=== PATIENT | male | born 1955 | race Caucasian/White ===

== ENCOUNTER 2021-07-04 16:54 | Observation (INO) | payer OTHER ==
[~2021-07-04] VITALS: Ht 180.3 cm; Wt 136.1 kg
[2021-07-04 17:27] LABS: BASOPHILS # (AUTO) 0.1 (0.0-0.1); BASOPHILS % 0.8 % (0.0-1.0); EOSINOPHILS # (AUTO) 0.2 (0.0-0.4); EOSINOPHILS % 1.5 % (0.0-6.0); HEMOGLOBIN 13.3 g/dL (14.0-18.0); LYMPHOCYTES # (AUTO) 1.7 (1.0-3.2); LYMPHOCYTES % 16.4 % (18.0-39.1); MEAN CORPUSCULAR HGB CONC 33.3 g/dL (31-35); MEAN CORPUSCULAR VOLUME 84.2 fL (81-99); MONOCYTES # (AUTO) 1.1 (0.2-0.8); MONOCYTES % 10.1 % (4.4-11.3); NEUTROPHILS # (AUTO) 7.4 (2.1-6.9); NEUTROPHILS % 70.4 % (38.7-80.0); PLATELET COUNT 304 x10e3/uL (140-360); RED BLOOD COUNT 4.75 x10e6/uL (4.3-5.7); RED CELL DISTRIBUTION WIDTH 13.3 % (11.7-14.4)
[2021-07-04 17:40] LABS: ALBUMIN 3.4 g/dL (3.5-5.0); ANION GAP 18.4 mmol/L (8-16); CALCIUM 8.3 mg/dL (8.4-10.2); CREATININE, SERUM 2.18 mg/dL (0.72-1.25); POTASSIUM 4.4 mmol/L (3.5-5.1)
[2021-07-04 17:47] LABS: CREATINE KINASE MB 1.8 ng/mL (0-5.0)
[2021-07-04 19:05] LABS: CLARITY,URINE TURBID (CLEAR); COLOR,URINE YELLOW (YELLOW); KETONES,URINE NEGATIVE (NEGATIVE); LEUKOCYTE ESTERASE ,URINE SMALL (NEGATIVE); NITRITE,URINE NEGATIVE (NEGATIVE); PROTEIN,URINE DIPSTICK 1+ (NEGATIVE); URINE UROBILINOGEN 0.2 mg/dL (0.2 - 1)
[2021-07-04 19:20] LABS: BACTERIA,URINE MANY /HPF; EPITHELIAL CELLS,URINE FEW /LPF; WBC,URINE (MAN) >50 /HPF (0-5)
[2021-07-04] MEDS ORDERED: ONDANSETRON HCL INJ 2MG/ML 2ML 2 MG/ML VIAL IV PRN (19:30)
[2021-07-04] MEDS ORDERED: DEXTROSE 50% SYRINGE 50 ML IV PRN (19:30)
[2021-07-04] MEDS ORDERED: SODIUM CHLORIDE FLUSH 10 ML SYR INJ PRN (19:30)
[2021-07-04] MEDS: CEFTRIAXONE 1 GM in SODIUM CHLORIDE 0.9% 50ML 50 ML IV SCH (19:58)
[2021-07-04] MEDS: SODIUM CHLORIDE 0.9% 1000ML 1,000 ML IV SCH (19:58)
[2021-07-04 20:40] VITALS: BP 138/70
[2021-07-04 20:54] VITALS: BP 138/70
[2021-07-04] MEDS: INSULIN REGULAR, HUMAN 100 UNIT/1 ML SQ SCH (22:11)
[2021-07-04] MEDS: ACETAMINOPHEN 325 MG TAB PO PRN (22:17)
[2021-07-04] MEDS ORDERED: ASPIRIN81 MG PO (23:01)
[2021-07-04] MEDS ORDERED: ATORVASTATIN CA80 MG (23:01)
[2021-07-04] MEDS ORDERED: METFORMIN HCL500 M1 (23:01)
[2021-07-04] MEDS ORDERED: ERYTHROMYCIN 2%30 GM (23:01)
[2021-07-04] MEDS ORDERED: JARDIANCE25 MG (23:01)
[2021-07-04] MEDS ORDERED: AMLODIPINE BESYL5 MG (23:01)
[2021-07-04] MEDS ORDERED: DIFLUPREDNATE5 ML (23:01)
[2021-07-04] MEDS ORDERED: HYDROCHLOROTH12.5 MG (23:01)
[2021-07-04] MEDS ORDERED: BRILINTA90 MG (23:01)
[2021-07-04] MEDS ORDERED: ATROPINE SULFATE2 ML (23:01)
[2021-07-04] MEDS ORDERED: LOSARTAN POTAS100 MG (23:01)
[2021-07-04] MEDS ORDERED: OFLOXACIN5 M1 (23:01)
[2021-07-05] VITALS (7 sets, daily range): BP systolic 115–167; BP diastolic 56–85
[2021-07-05] MEDS: SODIUM CHLORIDE 0.9% 1000ML 1,000 ML IV SCH ×2 (05:20→16:05)
[2021-07-05 07:21] LABS: CREATINE KINASE MB 1.8 ng/mL (0-5.0)
[2021-07-05] MEDS: INSULIN REGULAR, HUMAN 100 UNIT/1 ML SQ SCH ×4 (07:30→20:56)
[2021-07-05 07:41] LABS: CHOL/HDL RATIO 3.6 (3.9-4.7)
[2021-07-05] MEDS: CEFTRIAXONE 1 GM in SODIUM CHLORIDE 0.9% 50ML 50 ML IV SCH (08:33)
[2021-07-05] MEDS: Morphine 2mg Syringe 2 MG/ML SYR IV PRN ×2 (08:33→16:06)
[2021-07-05] MEDS ORDERED: KETOROLAC TROMETHAMINE 30 MG/ML VIAL IV PRN (10:30)
[2021-07-05] MEDS: ACETAMINOPHEN 325 MG TAB PO PRN (11:20)
[2021-07-05] MEDS: AMLODIPINE BESYLATE 5 MG TAB PO SCH (11:21)
[2021-07-05] MEDS: JARDIANCE 10 MG PO SCH (11:24)
[2021-07-05 14:01] LABS: CHOL/HDL RATIO 3.9 (3.9-4.7)
[2021-07-05 14:09] LABS: CREATINE KINASE MB 1.9 ng/mL (0-5.0)
[2021-07-05] MEDS ORDERED: ATORVASTATIN 20 MG TAB PO SCH (21:00)
[2021-07-06] VITALS: BP 141/53
[2021-07-06 00:06] VITALS: BP 142/70
[2021-07-06] MEDS: SODIUM CHLORIDE 0.9% 1000ML 1,000 ML IV SCH ×2 (01:32→11:25)
[2021-07-06 04:00] VITALS: BP 172/91
[2021-07-06 07:51] VITALS: BP 159/73
[2021-07-06 08:00] VITALS: BP 159/73
[2021-07-06] MEDS ORDERED: ASPIRIN 81 MG CHEW TAB PO SCH (09:00)
[2021-07-06] MEDS ORDERED: LOSARTAN POTASSIUM 100 MG TAB PO SCH (09:00)
[2021-07-06] MEDS ORDERED: TICAGRELOR 90 MG TABLET PO SCH (09:00)
[2021-07-06] MEDS: ACETAMINOPHEN 325 MG TAB PO PRN (09:29)
[2021-07-06] MEDS: JARDIANCE 10 MG PO SCH (10:27)
[2021-07-06] MEDS: CEFTRIAXONE 1 GM in SODIUM CHLORIDE 0.9% 50ML 50 ML IV SCH (10:27)
[2021-07-06] MEDS: AMLODIPINE BESYLATE 5 MG TAB PO SCH (10:27)
[2021-07-06] MEDS: INSULIN REGULAR, HUMAN 100 UNIT/1 ML SQ SCH ×2 (10:27→11:28)
[2021-07-06] MEDS: Morphine 2mg Syringe 2 MG/ML SYR IV PRN (10:28)
[2021-07-06 11:13] VITALS: BP 137/56
== END 2021-07-06 15:56 | disposition home or self-care (01) ==
LOC: ER 17:00 → ERHOLD 19:29 → MED/SURG3 20:40
PROVIDERS: ADMIT Family Medicine; ATTEND Family Medicine
DX: R55 Syncope and collapse (principal); S05.11XA Contusion of eyeball and orbital tissues, right eye, initial encounter; I12.9 Hypertensive chronic kidney disease with stage 1 through stage 4 chronic kidney disease, or unspecified chronic kidney disease; E11.22 Type 2 diabetes mellitus with diabetic chronic kidney disease; N18.9 Chronic kidney disease, unspecified; I25.10 Atherosclerotic heart disease of native coronary artery without angina pectoris; N39.0 Urinary tract infection, site not specified; E78.5 Hyperlipidemia, unspecified; N17.9 Acute kidney failure, unspecified; E66.01 Morbid (severe) obesity due to excess calories; Z83.3 Family history of diabetes mellitus; Z68.41 Body mass index [BMI] 40.0-44.9, adult; Z79.82 Long term (current) use of aspirin; Z79.84 Long term (current) use of oral hypoglycemic drugs; Z20.822 Contact with and (suspected) exposure to COVID-19
CPT/HCPCS: 36415 ×3; 70450; 70551; 71045; 80053; 80061; 81001; 82550 ×2; 82553 ×2; 82948 ×3; 84484 ×2; 85025; 87086; 87186; 93005; 93306; 93880; 94799 ×3; 99284; G0378 ×3; J0696 ×3; J1817 ×2; J2270 ×2; J7030 ×3; U0002